=== PATIENT | male | born 1955 | race Caucasian/White ===

== ENCOUNTER 2019-02-10 11:23 | Outpatient (CLI) | payer OTHER ==
[2019-02-10 12:36] LABS: eGFR (Non-African) > 60
== END 2019-02-10 11:25 ==
LOC: LAB 11:23
PROVIDERS: ATTEND Family Medicine
DX: E78.5 Hyperlipidemia, unspecified (principal)
CPT/HCPCS: 36415; 80053; 80061

== ENCOUNTER 2019-11-15 13:37 | Outpatient (CLI) | payer OTHER ==
--- NOTE | 2019-11-15 21:12 | Diagnostic Imaging Report ---
PATIENT MR#: [id number] PATIENT PATIENT NAME: FLORENCE LORENZANA DATE OF : 1955 REFERRING PHYSICIAN: Anmol Ortiz EXAM DATE: 11/15/2019 ACCESSION NUMBER: [id number] EXAM DESCRIPTION: FOOT 3 VIEWS OR MORE CLINICAL HISTORY: LEFT FOOT PAIN POST FALL COMPARISON: No study for comparison is available at the time of interpretation. TECHNIQUE: DX left foot, 3 views Osseous structures: There is an oblique fracture of the 1st proximal phalanx diaphysis, with mild 2 m m lateral and distal displacement. On AP view, there is a faint lucency through the distal half of the medial navic ular, which is not visualized on the oblique or lateral views. It is uncertain if this may represent a nondisplaced frac ture. Joint spaces: There is moderate arthrosis of the 1st MTP joint. Soft tissues: There is normal appearance of the soft tissues with no radiopaque foreign body seen. IMPRESSION: 1. Oblique fracture of the 1st proximal phalanx. 2. Indeterminate lucency of the medial navicular bone. If there is significant point tenderness at th e medial midfoot, a CT scan is recommended for further evaluation. 3. 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 Read by: Dr. Alexandre Jewell Transcribed by: Alexandre Jewell Transcribed Date: 11/15/2019 9:11:34 PM Electronically signed by: Dr. Alexandre Jewell Date signed: 11/15/2019 9:11:52 PM
--- NOTE | 2019-11-15 21:16 | Diagnostic Imaging Report ---
PATIENT MR#: [id number] PATIENT PATIENT NAME: FLORENCE LORENZANA DATE OF : 1955 REFERRING PHYSICIAN: Anmol Ortiz EXAM DATE: 11/15/2019 ACCESSION NUMBER: [id number] EXAM DESCRIPTION: WRIST 3 VIEWS OR MORE CLINICAL HISTORY: LEFT WRIST PAIN POST FALL COMPARISON: No study for comparison is available at the time of interpretation. TECHNIQUE: DX left wrist, 3 views Osseous structures: The osseous structures are normal with no evidence of fracture or dislocation. Th ere is no osseous lesion or periosteal reaction. Joint spaces: The bones are well aligned. No articular surface abnormality is noted. Soft tissues: There is normal appearance of the soft tissues with no radiopaque foreign body seen. IMPRESSION: No acute fracture. Read by: Dr. Alexandre Jewell Transcribed by: Alexandre Jewell Transcribed Date: 11/15/2019 9:15:27 PM Electronically signed by: Dr. Alexandre Jewell Date signed: 11/15/2019 9:15:27 PM
--- NOTE | 2019-11-15 21:18 | Diagnostic Imaging Report ---
PATIENT MR#: [id number] PATIENT PATIENT NAME: FLORENCE LORENZANA DATE OF : 1955 REFERRING PHYSICIAN: Anmol Ortiz EXAM DATE: 11/15/2019 ACCESSION NUMBER: [id number] EXAM DESCRIPTION: RT HIP 2VIEW COMPLETE CLINICAL HISTORY: RIGHT HIP PAIN POST FALL COMPARISON: No study for comparison is available at the time of interpretation. TECHNIQUE: DX right hip, 2 views Osseous structures: Status post right hip arthroplasty with intact hardware. Joint spaces: The arthroplasty components are well aligned. Soft tissues: There is normal appearance of the soft tissues. IMPRESSION: Right hip arthroplasty without fracture or dislocation. Read by: Dr. Alexandre Jewell Transcribed by: Alexandre Jewell Transcribed Date: 11/15/2019 9:16:45 PM Electronically signed by: Dr. Alexandre Jewell Date signed: 11/15/2019 9:16:45 PM
--- NOTE | 2019-11-15 21:20 | Diagnostic Imaging Report ---
PATIENT MR#: [id number] PATIENT PATIENT NAME: FLORENCE LORENZANA DATE OF : 1955 REFERRING PHYSICIAN: Anmol Ortiz EXAM DATE: 11/15/2019 ACCESSION NUMBER: [id number] EXAM DESCRIPTION: TIBIA FIBULA 2 VIEW CLINICAL HISTORY: FELL FROM A LADDER AND NOW HAS RIGHT LOWER LEG PAIN COMPARISON: No study for comparison is available at the time of interpretation. TECHNIQUE: DX right tibia fibula, 3 views Osseous structures: The osseous structures are normal with no evidence of fracture or dislocation. Th ere is no osseous lesion or periosteal reaction. Joint spaces: The bones are well aligned. No articular surface abnormality is noted. Soft tissues: There is a 1.3 cm metallic wire density superimposed over the medial sam soft tissues. IMPRESSION: 1. No fracture. 2. Metallic foreign body within the anterior sam soft tissues. Read by: Dr. Alexandre Jewell Transcribed by: Alexandre Jewell Transcribed Date: 11/15/2019 9:19:22 PM Electronically signed by: Dr. Alexandre Jewell Date signed: 11/15/2019 9:19:22 PM
== END 2019-11-15 13:47 ==
LOC: RAD 13:37
PROVIDERS: ATTEND Family Medicine
DX: M79.604 Pain in right leg (principal); M25.551 Pain in right hip; M25.532 Pain in left wrist
CPT/HCPCS: 73110; 73502; 73590; 73630